=== PATIENT | male | born 1975 | race Caucasian/White ===

== ENCOUNTER 2024-04-02 22:21 | Emergency (ER) | payer OTHER ==
[~2024-04-02] VITALS: Ht 167.6 cm; Wt 74.8 kg
[2024-04-02] MEDS ORDERED: Acetaminophen 500 MG Tab PO ONE (22:35)
[2024-04-02] MEDS ORDERED: Tetanus and Diphtheria Toxoid 0.5 ML INJ IM ONE (22:35)
[2024-04-02] MEDS ORDERED: Ondansetron 4 MG SoluTab SL ONE (22:35)
[2024-04-03 00:05] VITALS: BP 125/82
== END 2024-04-03 00:05 | disposition home or self-care (01) ==
LOC: ER 22:21
DX: S42.031A Displaced fracture of lateral end of right clavicle, initial encounter for closed fracture (principal); S80.812A Abrasion, left lower leg, initial encounter; S80.811A Abrasion, right lower leg, initial encounter; S40.812A Abrasion of left upper arm, initial encounter; S40.811A Abrasion of right upper arm, initial encounter; V20.49XA Other motorcycle driver injured in collision with pedestrian or animal in traffic accident, initial encounter; F17.200 Nicotine dependence, unspecified, uncomplicated
CPT/HCPCS: 71045; 73030; 90471; 90714; 93005; 93010; 99284-25; A9270